=== PATIENT | female | born 1985 | race Caucasian/White ===

== ENCOUNTER 2025-01-23 10:39 | Day surgery (SDC) | payer BC ==
[2025-01-23] MEDS ORDERED: Sodium Chloride 0.9% 10 ML Syringe FLUSH PRN (11:06)
[2025-01-23] MEDS ORDERED: Sodium Chloride 0.9% 2.5 ML Syringe FLUSH PRN (11:06)
[2025-01-23 11:17] LABS: BASOPHILS ABSOLUTE AUTO 0.02 K/uL (0.00-0.20); BASOPHILS PERCENT AUTO 0.2 % (0.0-1.0); EOSINOPHILS ABSOLUTE AUTO 0.09 K/uL (0.00-0.45); EOSINOPHILS PERCENT AUTO 1.0 % (0.0-6.0); IMMATURE GRAN ABSOLUTE AUTO 0.03 K/uL (0.00-0.05); IMMATURE GRAN PERCENT AUTO 0.3 % (0.0-0.4); LYMPHOCYTES ABSOLUTE AUTO 3.36 K/uL (1.00-4.80); LYMPHOCYTES PERCENT AUTO 39.1 % (24.0-44.0); MEAN PLATELET VOLUME 11.9 fL (9.4-12.3); MONOCYTES ABSOLUTE AUTO 0.51 K/uL (0.00-0.80); MONOCYTES PERCENT AUTO 5.9 % (0.0-8.0); NEUTROPHILS ABSOLUTE AUTO 4.58 K/uL (1.80-7.70); NEUTROPHILS PERCENT AUTO 53.5 % (41.0-71.0); NRBC ABSOLUTE 0.00 K/uL (0.00-0.02); NRBC PERCENT 0.0 /100WBC (0.0-0.2); PLATELET COUNT,PLT 186 K/uL (150-400); RED BLOOD CELL COUNT 4.19 M/uL (4.10-5.30); WHITE BLOOD CELL COUNT,WBC 8.59 K/uL (3.9-11.3)
[2025-01-23 11:27] LABS: A/G RATIO 1.0 (0.9-1.6); ALANINE AMINOTRANSFERASE,ALT 34.0 IU/L (14-63); ASPARTATE AMNIOTRANSFERASE,AST 36.0 IU/L (15-37); BILIRUBIN TOTAL 0.5 mg/dL (0.2-1.0); BLOOD UREA NITROGEN,BUN 12.0 mg/dL (7.0-18.0); CHLORIDE,CL 105.0 mmol/L (98-107); CREATININE 0.7 mg/dL (0.6-1.0); EST CRCL DRUG DOSING (CG) 87.03 mL/min; GLUCOSE RANDOM 107.0 mg/dL (74-106); POTASSIUM,K 3.6 mmol/L (3.5-5.1); PROTEIN TOTAL,TP 7.2 g/dL (6.4-8.2); SODIUM,NA 140.0 mmol/L (136-145)
[2025-01-23 11:36] LABS: CARBON DIOXIDE,CO2 23.9 mmol/L (21.0-32.0)
[2025-01-23 11:38] LABS: ESTIMATED GFR 114.0 mL/min (>60)
[2025-01-23 11:56] LABS: APPEARANCE,URINE CLEAR; GLUCOSE,URINE NEGATIVE (NEGATIVE); OCCULT BLOOD,URINE TRACE-INTACT (NEGATIVE)
[2025-01-23 12:08] LABS: EPITHELIAL CELLS,URINE OCCASIONAL (NONE-FEW)
[2025-01-23] MEDS: Alum Hydrox/Mag Hydrox/Simeth 15 ML, Lidocaine 2% 5 ML PO ONE (12:29)
[2025-01-23] MEDS: fentaNYL 50 MCG/ML SDV IVPUSH ONE (15:02)
[2025-01-23] MEDS: Ketorolac 30 MG/ML SDV IVPUSH SCH (19:02)
[2025-01-24 05:55] LABS: MEAN PLATELET VOLUME 11.3 fL (9.4-12.3); NRBC ABSOLUTE 0.00 K/uL (0.00-0.02); NRBC PERCENT 0.0 /100WBC (0.0-0.2); PLATELET COUNT,PLT 174 K/uL (150-400); RED BLOOD CELL COUNT 3.64 M/uL (4.10-5.30); WHITE BLOOD CELL COUNT,WBC 6.11 K/uL (3.9-11.3)
[2025-01-24 06:23] LABS: A/G RATIO 1.0 (0.9-1.6); ALANINE AMINOTRANSFERASE,ALT 271.0 IU/L (14-63); ASPARTATE AMNIOTRANSFERASE,AST 132.0 IU/L (15-37); BILIRUBIN TOTAL 1.0 mg/dL (0.2-1.0); BLOOD UREA NITROGEN,BUN 8.0 mg/dL (7.0-18.0); CARBON DIOXIDE,CO2 22.1 mmol/L (21.0-32.0); CHLORIDE,CL 107.0 mmol/L (98-107); CREATININE 0.7 mg/dL (0.6-1.0); EST CRCL DRUG DOSING (CG) 87.03 mL/min; GLUCOSE RANDOM 79.0 mg/dL (74-106); POTASSIUM,K 3.5 mmol/L (3.5-5.1); PROTEIN TOTAL,TP 6.1 g/dL (6.4-8.2); SODIUM,NA 139.0 mmol/L (136-145)
[2025-01-24 06:28] LABS: ESTIMATED GFR 114.0 mL/min (>60)
[2025-01-24] MEDS: ceFAZolin 2 GM in Water For Injection, Sterile 20 ML IVPUSH ONE (08:05)
[2025-01-24] MEDS ORDERED: fentaNYL 100 MCG/2 ML SDV ONE (08:28)
[2025-01-24] MEDS ORDERED: Propofol 200 MG/20 ML SDV ONE (08:28)
[2025-01-24] MEDS ORDERED: Ketorolac 30 MG/ML SDV ONE (08:29)
[2025-01-24] MEDS ORDERED: Dexamethasone 4 MG/ML 5 ML MDV ONE (08:29)
[2025-01-24] MEDS ORDERED: Midazolam 1 MG/ML 2 ML SDV ONE (08:29)
[2025-01-24] MEDS ORDERED: Ondansetron 4 MG/2 ML SDV ONE (08:29)
[2025-01-24] MEDS ORDERED: Ropivacaine 0.5% 5 MG/ML 30 ML SDV ONE (08:35)
[2025-01-24] MEDS ORDERED: dexmedeTOMIDine HCl 200 MCG/2 ML SDV ONE (08:36)
[2025-01-24] MEDS ORDERED: fentaNYL 50 MCG/ML SDV ONE (10:25)
[2025-01-24] MEDS: Acetaminophen/oxyCODONE 325-5 MG Tab PO PRN (14:09)
== END 2025-01-24 15:20 | disposition home or self-care (01) ==
LOC: MW.ED 10:39 → MW.SDS 16:27 → MW.MS 17:51 → MW.SDS 01-24 15:20
PROVIDERS: ATTEND Surgery
DX: K80.66 Calculus of gallbladder and bile duct with acute and chronic cholecystitis without obstruction (principal); K42.9 Umbilical hernia without obstruction or gangrene; E83.51 Hypocalcemia; E66.9 Obesity, unspecified
CPT/HCPCS: 36415; 47562; 64488; 76705; 80053; 81001; 81025; 82947; 83690; 85025; 85027; 96361; 96374; 96375; 99285; A9270; J0665; J0690; J1100; J1171; J1885; J2003; J2250; J2270; J2371; J2405; J2704; J2795; J3010; J7030; 00790; 93010; J3490